=== PATIENT | male | born 1995 | race Hispanic/Latino ===

== ENCOUNTER 2020-01-28 21:38 | Emergency (ER) | payer BC ==
[~2020-01-28] VITALS: Ht 182.9 cm; Wt 108.9 kg
--- NOTE | 2020-01-28 22:51 | Emergency Department Note ---
History of Present Illnes History of Present Illness Chief Complaint: almost past out/ was unresponsive/ cp then got anxious s/p smoking marijuana History of Present Illness This is a 24 year old male. was doing well prior to this. 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 Required: No Onset (how long ago): minute(s) (20) Location: see above Quality: see above Radiation: Reports non-radiation Severity: moderate Onset quality: sudden Duration (how long): hour(s) (0.1) Timing of current episode: constant Progression: resolved Chronicity: new Context: Denies recent illness, Denies recent surgery, Denies recent immobilization, Denies recent travel, Denies trauma/injury, Denies new medications, Denies hx of DVT/PE, Denies non-compliance w/ medications Relieving factors: none Exacerbating factors: none Associated symptoms: Reports chest pain, Reports headaches; Denies cough, Denies diaphoresis, Denies fever/chills, Denies loss of appetite, Denies malaise, Denies nausea/vomiting, Denies rash, Denies seizure, Denies shortness of breath, Denies syncope, Denies weakness Treatments prior to arrival: none Past Medical/Family History Physician Review I have reviewed the patient's past medical and family history. Any updates have been documented here. Past Medical History Recent Fever: No Clinical Suspicion of Infectio: No New/Unexplained Change in Ment: No Past Medical History: None Past Surgical History: None Social History Smoking Cessation: Never Smoker Counseling Performed: No Alcohol Use: Social Any Illegal Drug Use: Yes (marijuana) TB Exposure/Symptoms: No Physically hurt or threatened: No Family History Family history of heart diseas: No Other Any Pre-Existing Lines (PICC,: No Is patient up to date on immun: No Review of Systems Review of Systems Constitutional: Reports no symptoms EENTM: Reports no symptoms Cardiovascular: Reports as per HPI Respiratory: Reports no symptoms Gastrointestinal: Reports no symptoms Genitourinary: Reports no symptoms Musculoskeletal: Reports no symptoms Integumentary: Reports no symptoms Neurological: Reports as per HPI Psychological: Reports no symptoms Endocrine: Reports no symptoms Hematological/Lymphatic: Reports no symptoms Review of other systems: All other systems negative Physical Exam Related Data Allergies: Coded Allergies: Penicillins (Verified Allergy, Unknown, 01/29/20) Vital signs reviewed: Yes Physical Exam CONSTITUTIONAL Constitutional: Present well-developed, Present well-nourished HENT HENT: Present normocephalic, Present atraumatic, Present mucosae dry, Present nose normal HENT L/R: Present left ext ear normal, Present right ext ear normal EYES Eyes: Reports PERRL, Reports conjunctivae normal NECK Neck: Present ROM normal, Present supple PULMONARY Pulmonary: Present effort normal, Present breath sounds normal CARDIOVASCULAR Cardiovascular: Present regular rhythm, Present heart sounds normal, Present capillary refill normal, Present normal rate GASTROINTESTINAL Abdominal: Present soft, Present nontender, Present bowel sounds normal GENITOURINARY Genitourinary: Present exam deferred SKIN Skin: Present warm, Present dry MUSCULOSKELETAL Musculoskeletal: Present ROM normal NEUROLOGICAL Neurological: Present alert, Present oriented x 3, Present no gross motor or sensory deficits PSYCHOLOGICAL Psychological: Present mood/affect normal, Present judgement normal Results Laboratory Lab results reviewed: Yes Laboratory comments cbc/cmp/cardiac enzymes/ua all normal except specific gravity greater than 1.03 Imaging Imaging results reviewed: Yes Impressions [place] [id number] Patient Name: COLETTE POWER MR #: [id number] : 1995 Age/Sex: 24/M Req #: [id number] Adm Physician: Ordered by: BI MANNING Report #: [id number] Location: [facility] Room/Bed: Procedure: [id number] HOPD/CT BRAIN WO-HOPD Exam Date: 01/28/20 Exam Time: 0005 REPORT STATUS: Signed Exam: Head CT without contrast History: Blacked out Comparison studies: None Technique: Axial images were obtained from the skull base to the vertex. Coronal and sagittal images reconstructed from the axial data. Dose modulation, iterative reconstruction, and/or weight based adjustment of the mA/kV was utilized to reduce the radiation dose to as low as reasonably achievable. Radiation dose: Total DLP: 969 Gy*cm. Estimated effective dose: DLP x 0.015 Intravenous contrast: None Findings: Scalp: No abnormalities. Bones: No fractures, blastic or lytic lesions. Brain sulci: Appropriate for age. Ventricles: Normal in size and configuration. No hydrocephalus. Extra-axial spaces: No masses, no fluid collection. Parenchyma: No abnormal densities. No masses, acute hemorrhage, acute or chronic vascular insults. Sellar/suprasellar region: No abnormalities. Craniocervical junction: Patent foramen magnum. No Chiari one malformation. Included paranasal sinuses: Clear. Middle ear cavities and mastoids: Clear. IMPRESSION: No acute abnormalities. Signed by: Dr. Alla Pritchard M.D. on 01/29/2020 12:41 AM Dictated By: ALLA PRITCHARD MD Transcribed By: MRALYN on 01/29/2040 COPY TO: BI MANNING~ [place] [address] Patient Name: COLETTE POWER MR #: [id number] : 1995 Age/Sex: 24/M Req #: [id number] Adm Physician: Ordered by: BI MANNING Report #: [id number] Location: [facility] Room/Bed: Procedure: [id number] HOPD/CXR 2 VIEW - HOPD Exam Date: 01/28/20 Exam Time: 4 REPORT STATUS: Signed EXAMINATION: CXR 2 VIEW - HOPD INDICATION: ^cp ^[id number] ^0005 COMPARISON: None FINDINGS: TUBES and LINES: None. LUNGS: Normal lung volumes. Lungs are clear. No consolidations. 1.0 cm nodular density projecting over the lateral spine. PLEURA: No pleural effusion or pneumothorax. HEART AND MEDIASTINUM: The cardiomediastinal silhouette is unremarkable. BONES AND SOFT TISSUES: No acute osseous lesion. Soft tissues are unremarkable. UPPER ABDOMEN: No free air under the diaphragm. IMPRESSION: 1. No acute thoracic radiographic abnormality. 2. 1.0 cm nodular density projecting over the mid thoracic spine related to a vessel on end versus true pulmonary nodule. Recommend follow-up radiograph in 3 months versus nonemergent chest CT. Signed by: Divina Zepeda MD on 01/29/2020 12:31 AM Dictated By: DIVINA ZEPEDA MD Transcribed By: MARLYN on 01/29/2030 COPY TO: BI MANNING~ Procedures 12 Lead ECG Interpretation ECG Interpretation : ECG: ECG 1 Mantel Craftsman: Interpreted by ED physician Date: Jan 28, 2020 Time: 22:52 Prior ECG tracings: reviewed Rhythm: sinus bradycardia Rate: bradycardia BPM: 57 QRS axis: normal ST segments normal: Yes T wave inversion: III Clinical Impression: abnormal ECG Assessment & Plan Medical Decision Making [place] [address] Patient Name: COLETTE POWER MR #: [id number] : 1995 Age/Sex: 24/M Req #: [id number] Adm Physician: Ordered by: BI MANNING Report #: [id number] Location: [facility] Room/Bed: Procedure: [id number] HOPD/CXR 2 VIEW - HOPD Exam Date: 01/28/20 Exam Time: 4 REPORT STATUS: Signed EXAMINATION: CXR 2 VIEW - HOPD INDICATION: ^cp ^[id number] ^0005 COMPARISON: None FINDINGS: TUBES and LINES: None. LUNGS: Normal lung volumes. Lungs are clear. No consolidations. 1.0 cm nodular density projecting over the lateral spine. PLEURA: No pleural effusion or pneumothorax. HEART AND MEDIASTINUM: The cardiomediastinal silhouette is unremarkable. BONES AND SOFT TISSUES: No acute osseous lesion. Soft tissues are unremarkable. UPPER ABDOMEN: No free air under the diaphragm. IMPRESSION: 1. No acute thoracic radiographic abnormality. 2. 1.0 cm nodular density projecting over the mid thoracic spine related to a vessel on end versus true pulmonary nodule. Recommend follow-up radiograph in 3 months versus nonemergent chest CT. Signed by: Divina Zepeda MD on 01/29/2020 12:31 AM Dictated By: DIVINA ZEPEDA MD Transcribed By: MARLYN on 01/29/2030 COPY TO: BI MANNING~ Reassessment Reassessment time: 00:45 Reassessment no more symptoms Assessment & Plan Final Impression: (1) Pre-syncope (2) Dehydration (3) Sinus bradycardia Depart Disposition: HOME, SELF-CARE BI MANNING Jan 28, 2020 22:51
[2020-01-28] MEDS: SODIUM CHLORIDE 0.9% 1000ML 1,000 ML IV STA (23:39)
--- NOTE | 2020-01-29 00:34 | Diagnostic Imaging Report ---
EXAMINATION: CXR 2 VIEW - HOPD INDICATION: ^cp ^[id number] ^0005 COMPARISON: None FINDINGS: TUBES and LINES: None. LUNGS: Normal lung volumes. Lungs are clear. No consolidations. 1.0 cm nodular density projecting over the lateral spine. PLEURA: No pleural effusion or pneumothorax. HEART AND MEDIASTINUM: The cardiomediastinal silhouette is unremarkable. BONES AND SOFT TISSUES: No acute osseous lesion. Soft tissues are unremarkable. UPPER ABDOMEN: No free air under the diaphragm. IMPRESSION: 1. No acute thoracic radiographic abnormality. 2. 1.0 cm nodular density projecting over the mid thoracic spine related to a vessel on end versus true pulmonary nodule. Recommend follow-up radiograph in 3 months versus nonemergent chest CT. Signed by: Yobany Whitt MD on 01/29/2020 12:31 AM
--- NOTE | 2020-01-29 00:45 | Diagnostic Imaging Report ---
Exam: Head CT without contrast History: Blacked out Comparison studies: None Technique: Axial images were obtained from the skull base to the vertex. Coronal and sagittal images reconstructed from the axial data. Dose modulation, iterative reconstruction, and/or weight based adjustment of the mA/kV was utilized to reduce the radiation dose to as low as reasonably achievable. Radiation dose: Total DLP: 969 Gy*cm. Estimated effective dose: DLP x 0.015 Intravenous contrast: None Findings: Scalp: No abnormalities. Bones: No fractures, blastic or lytic lesions. Brain sulci: Appropriate for age. Ventricles: Normal in size and configuration. No hydrocephalus. Extra-axial spaces: No masses, no fluid collection. Parenchyma: No abnormal densities. No masses, acute hemorrhage, acute or chronic vascular insults. Sellar/suprasellar region: No abnormalities. Craniocervical junction: Patent foramen magnum. No Chiari one malformation. Included paranasal sinuses: Clear. Middle ear cavities and mastoids: Clear. IMPRESSION: No acute abnormalities. Signed by: Dr. Milton Pritchard M.D. on 01/29/2020 12:41 AM
[2020-01-29 01:16] VITALS: BP 123/62
== END 2020-01-29 01:23 | disposition home or self-care (01) ==
LOC: FSED 22:39
DX: R55 Syncope and collapse (principal); R00.1 Bradycardia, unspecified; E86.0 Dehydration
CPT/HCPCS: 70450; 71046; 80048; 81003; 82553; 84484; 85025; 93005; 99284